=== PATIENT | female | born 1995 | race Caucasian/White ===

== ENCOUNTER 2022-01-25 23:40 | Outpatient (CLI) | payer BC, OTHER, SELFPAY ==
[2022-01-26 00:37] VITALS: BP 135/89; PULSE 82
--- NOTE | 2022-01-26 05:29 | PM.OBTRLD ---
OB - Triage/Final Diagnosis Visit Information Date of evaluation: 01/25/22 Reason for evaluation: threatened labor Comments/Additional reasons for admission: I have assessed the risk for this patient, Merylbrandie Vargas, and determined that she would benefit from observation care. Evaluation Vital signs: Vital Signs - 24 hr 01/26/22 00:37 Pulse Rate 82 Blood Pressure 135/89
== END 2022-01-26 00:30 | disposition home or self-care (01) ==
LOC: ANHOBOP 01-26 00:26 → ANHLDR 01-26 00:29
PROVIDERS: PCP Family Medicine; Visit Provider Obstetrics & Gynecology
DX: O41.8X90 Other specified disorders of amniotic fluid and membranes, unspecified trimester, not applicable or unspecified (principal)
CPT/HCPCS: 59025; 84112; 99199

== ENCOUNTER 2022-01-27 11:30 | Outpatient (RCR) | payer BC, OTHER, SELFPAY ==
[2021-12-29 13:16] VITALS: BP 112/95; PULSE 98
[2021-12-29 13:31] VITALS: BP 111/68; PULSE 95
[2021-12-29 13:46] VITALS: BP 113/67; PULSE 89
[2021-12-29 14:01] VITALS: BP 110/67; PULSE 78
[2021-12-29 14:16] VITALS: BP 109/66; PULSE 82
[2021-12-29 15:00] VITALS: BP 109/66; PULSE 82
[2022-01-05 15:30] VITALS: BP 127/74; PULSE 85
[2022-01-13 12:14] VITALS: BP 123/70; PULSE 79
[2022-01-20 12:35] VITALS: BP 126/83
== END 2022-03-25 07:35 | disposition home or self-care (01) ==
LOC: ANHOBOP 11:30
PROVIDERS: PCP Family Medicine; Visit Provider Obstetrics & Gynecology
DX: O30.003 Twin pregnancy, unspecified number of placenta and unspecified number of amniotic sacs, third trimester (principal); Z3A.33 33 weeks gestation of pregnancy; Z3A.35 35 weeks gestation of pregnancy
CPT/HCPCS: 59025

== ENCOUNTER 2022-02-02 06:29 | Inpatient (IN) | payer BC, OTHER, SELFPAY ==
[2022-02-02] VITALS (90 sets, daily range): BP systolic 94–143; BP diastolic 49–126; PULSE 67–190; RESP 18; TEMP 36.6–36.9; O2SAT 95–100; BMI 34.8
--- NOTE | 2022-02-02 06:56 | LDADM ---
This patient, Meryl Vargas, was admitted to Labor/Delivery/Recovery 102 on 02/02/22 at 06:29. Plans for labor, pain management and were discussed with patient. Patient/family oriented to hospital policies and general routines including ID bracelet, bed and alarms, visiting hours, pain management, procedures, bathroom and other care routines, personal items, smoking policy, room service/diet and guest tray routines, security routines, and visiting hours. Patient/Family are encouraged to report perceived risks to care and to ask questions if they do not understand what they are told or what they should do. See OBIX for further documentation.
[2022-02-02] MEDS: OXYTOCIN 30 UNITS/NS 500 ML 30 UNITS/500 ML BAG IV CONT (07:24)
[2022-02-02] MEDS: LACTATED RINGERS 1,000 ML 125 ML IV CONT ×3 (07:27→15:35)
[2022-02-02] MEDS: AMPICILLIN 2 GM/NS 100 ML 2 GM/100 ML BAG IVPB (07:29)
[2022-02-02 07:55] LABS: Basophils Percent Auto 0.5 % (0.2-1.2); Eosinophils Absolute Auto 0.2 K/mm3 (0-0.3); Hematocrit 31.1 % (37.0-47.0); Hemoglobin 9.2 g/dL (12.0-15.0); Immature Granulocyte Absolute 0.07 K/mm3 (0.00-0.031); Immature Granulocyte Percent A 0.9 % (0-0.5); Immature Platelet Fraction Pct 18.9 % (0.9-11.2); Lymphocytes Absolute Auto 1.46 K/mm3 (0.9-3.2); Lymphocytes Percent Auto 19.3 % (18.3-44.2); Mean Corpuscular HGB Conc 29.6 g/dl (32-36); Mean Corpuscular Hemoglobin 21.2 pg (26-34); Mean Corpuscular Volume 71.7 fl (80-100); Monocytes Absolute Auto 0.6 K/mm3 (0.1-0.6); Monocytes Percent Auto 7.5 % (2.6-8.5); Neutrophils Absolute Auto 5.3 K/mm3 (1.3-6.7); Neutrophils Percent Auto 69.8 % (45.5-73.1); Platelet Count Result 165 k/mm3 (150-375); Red Blood Count 4.34 M/mm3 (4.2-5.4); Red Cell Distribution Width 20.5 % (11.5-14.5); White Blood Count 7.6 K/mm3 (4.5-10.0)
[2022-02-02 08:20] LABS: Anisocytosis 1+ (NORMAL); Platelet Estimate Adequate (Adequate); Poikilocytosis 1+ (NORMAL); Schistocytes 1+ (NORMAL); Tear Drop Cells 1+ (NORMAL)
--- NOTE | 2022-02-02 08:35 | WPDANESEPP ---
Anes - Eval Pre Procedure Procedure: Labor Epidural Date/Time: 02/02/22 08:35 Surgeon: Herbert Preop Diagnosis: Labor Pain Pre Op Diagnosis: induction Patient Data Age: 26 Gender: F Height: 1.65 m Weight: 95 kg Last Vital Signs Pulse 84 02/02/22 08:30 BP 135/72 02/02/22 08:30 O2 Del Method Room Air 02/02/22 06:53 Allergies Allergy/AdvReac Type Severity Reaction Status Date / Time No Known Allergies Allergy Verified 01/15/22 12:24 Home Medications Medication Instructions Recorded Confirmed Type ferrous sulfate 142 mg (45 mg 142 mg PO DAILY 01/15/22 01/15/22 History iron) tablet,extended release prenat.vits,bassam,[id number] 1 tablet PO DAILY 01/15/22 01/15/22 History Laboratory Tests 02/02/22 02/02/22 07:36 07:36 WBC 7.6 K/mm3 K/mm3 (4.5-10.0) RBC 4.34 M/mm3 M/mm3 (4.2-5.4) Hgb 9.2 g/dL L g/dL (12.0-15.0) Hct 31.1 % L % (37.0-47.0) MCV 71.7 fl L fl (80-100) MCH 21.2 pg L pg (26-34) MCHC 29.6 g/dl L g/dl (32-36) RDW 20.5 % H % (11.5-14.5) Plt Count 165 k/mm3 k/mm3 (150-375) MPV TNP Immature Gran % (Auto) 0.9 % H % (0-0.5) Neut % (Auto) 69.8 % % (45.5-73.1) Lymph % (Auto) 19.3 % % (18.3-44.2) [place] % (Auto) 7.5 % % (2.6-8.5) Eos % (Auto) 2.0 % % (0-4.4) Baso % (Auto) 0.5 % % (0.2-1.2) Lymph # (Auto) 1.46 K/mm3 K/mm3 (0.9-3.2) [place] # (Auto) 0.6 K/mm3 K/mm3 (0.1-0.6) Eos # (Auto) 0.2 K/mm3 K/mm3 (0-0.3) Baso # (Auto) 0.0 K/mm3 K/mm3 (0.0-0.1) Abs Immat Gran (auto) 0.07 K/mm3 H K/mm3 (0.00-0.031) Absolute Neuts (auto) 5.3 K/mm3 K/mm3 (1.3-6.7) Absolute Nucleated RBC 0.0 K/mm3 K/mm3 (0.0-0.012) Nucleated RBC % 0.0 % % (0.0-0.2) Platelet Estimate Adequate (Adequate) % Immature Plt Fraction 18.9 % H % (0.9-11.2) Poikilocytosis 1+ (NORMAL) Anisocytosis 1+ (NORMAL) Tear Drop Cells 1+ (NORMAL) Schistocytes 1+ (NORMAL) RPR Pending Patient hx anesthesia problems: none Family hx anesthesia problems: none Results Review: All pre-operative results and documents have been reviewed as part of the pre-operative evaluation. [facility] Family History Family History (Updated 01/15/22 @ 12:26 by Ortega Quinn RN) Other No pertinent family history Social History Social History Smoking status: Former smoker Tobacco type: cigarettes Second hand tobacco smoke exposure: No Substance use: never Spiritual care concerns: No Exam Day of Procedure 02/02/22 08:35 Patient weight: obese Heart: regular rate and rhythm Lungs: clear to auscultation Airway: Mallampati scale class II Neurological: alert and oriented
--- NOTE | 2022-02-02 08:45 | PM.IMHP ---
H&P: HPI History of Present Illness Date/Time: 02/02/22 08:45 Chief Complaint: Here for induction of labor. Narrative: 26 y/o at 38 1/7 weeks with di/di twins here for induction of labor. GBS pos. Also, she is interested in permanent contraception with tubal ligation. Review of Systems Review of Systems: All systems reviewed & are unremarkable except as noted in HPI and below PMFSH Past Medical History Medical History ADHD OCD (obsessive compulsive disorder) Family History Family History Other No pertinent family history Social History Social History Smoking status: Former smoker Tobacco type: cigarettes Second hand tobacco smoke exposure: No Substance use: never Spiritual care concerns: No Meds Home Medications and Allergies Home Medications Medication Instructions Recorded Confirmed Type ferrous sulfate 142 mg (45 mg 142 mg PO DAILY 01/15/22 01/15/22 History iron) tablet,extended release prenat.vits,bassam,ton-[id number] 1 tablet PO DAILY 01/15/22 01/15/22 History Allergies Allergy/AdvReac Type Severity Reaction Status Date / Time No Known Allergies Allergy Verified 01/15/22 12:24 Vital Signs Vital Signs - 24 hr 02/02/22 06:53 02/02/22 07:09 02/02/22 07:15 Pulse Rate 88 80 Blood Pressure 134/91 H 130/84 Oxygen Delivery Room Air 02/02/22 07:45 02/02/22 08:00 02/02/22 08:15 Pulse Rate 85 90 82 Blood Pressure 134/76 143/88 H 133/82 Oxygen Delivery 02/02/22 08:30 Pulse Rate 84 Blood Pressure 135/72 Oxygen Delivery Exam Const: Orientation/consciousness: patient oriented x3 Other: Well-developed, well-nourished female in no acute distress. Neck: Thyroid: thyroid normal Lymphatic: no lymphadenopathy noted (in neck, axilla or inguinal nodes) Resp: Effort & Inspection: normal respiratory effort Auscultation: clear to auscultation bilaterally Cardio: Rate: regular rate Rhythm: regular rhythm Heart sounds: S1 normal heart sound present and S2 normal heart sound present GI: Other: ABD: Soft, nontender, nondistended, gravid. NST reactive x 2. TOCO: irregular contractions. Bedside ultrasound exam by me shows vtx / vtx, with baby A on maternal left. : General: Yes no CVA tenderness Other: Cervix 4/50/-2. AROM with thin meconium. Vertex presentation. Back/Spine/Pelvis: Back: no CVA tenderness Skin: General skin exam: normal color and no rashes or lesions noted Neuro: General: patient oriented x3 Extrem: Other: Extremities: nontender with no edema Psych: Mental Status: mental status grossly normal Affect: normal affect H&P: Results Labs Labs: Short CBC 02/02/22 Range/Units 07:36 WBC 7.6 (4.5-10.0) K/mm3 Hgb 9.2 L (12.0-15.0) g/dL Hct 31.1 L (37.0-47.0) % Plt Count 165 (150-375) k/mm3 Assessment and Plan Assessment and plan (1) Twin gestation with second : Code(s): O30.009 - Twin , unspecified number of placenta and unspecified number of amniotic sacs, unspecified trimester Status: Acute Assessment and Plan: A: IUP at 38 1/7 weeks with di/di twins, vtx / vtx, desiring induction of labor. GBS pos. Would like tubal ligation for permanent contraception as well. P: Offered induction of labor. Reviewed risks / benefits / alternatives in detail. Ampicillin for GBS. Peds aware of thin meconium. Also, she understands there are temporary methods of contraception available to her. She understands that there are nonsurgical options as well as surgical options. She understands that tubal ligation will render her permanently sterile. She understands that there is a failure rate associated with tubal ligation, as well as an inherent ectopic gestation risk. Furthermore, she und
[2022-02-02 10:30] LABS: Rapid Plasma Reagin Non-Reactive (NonReactive)
[2022-02-02] MEDS: AMPICILLIN 1 GM/NS 50 ML 1 GM/50 ML BAG IVPB ×2 (11:36→15:15)
--- NOTE | 2022-02-02 11:43 | PM.OBPNLAB ---
Pain Control Date/time seen: 02/02/22 11:43 Feeling cointracions. AVSS NST reactive x 2. TOCO: contractions every 2-5 min Cervix 5/50/-2. IUPC placed. Continue labor.
--- NOTE | 2022-02-02 15:30 | PC.NURSE ---
1500 - 1513 Introductions were made in room 102 related to mother asking for assistance with twins and she is interested in reviewing some education prior to delivery. Mother led the conversation with her?plans to feed?her infants. Mother plans to place her infants skin to skin for at least one hour with no bathing. Encouraged her plan and how to encourage infants to latch and remove milk. Educated mother on hand expressing if there's is separation or no latching within the first hour after to encourage a robust milk supply for twins. tool used for teach back on the technique of hand expression. Primary RN is in the room to assess the patient.
--- NOTE | 2022-02-02 16:48 | PM.OBPRVD ---
OB - Delivery Note Procedure Delivery date: 02/02/22 Procedure: Induction of labor with of twins Induction method: Per Pitocin Protocol Delivery augmentation: Rupture of Membranes Delivery monitor: External FHT, External Uterine and Internal Uterine Route of delivery: Laceration Description: Periurethral and Vaginal Delivery repair: vicryl (3-0) Specimen: Yes (cord blood x 2, placentas x 2) Quantitative Blood Loss (ml): 420 Anesthesia type: Epidural Disposition: PACU Complications: None Narrative: 26 y/o at 38 1/7 weeks gestation with di/di twins who presented to the hospital for induction of labor. GBS pos. She received ampicillin. Oxytocin was administered intravenously. Amniotomy of sac A was performed with return of thinly meconium-stained fluid. She received an epidural for pain control. Her labor progressed and her cervix dilated completely. She was taken to the OR, where she pushed with good effort and delivered the 's head to the perineum, followed by the body. The nose and mouth were bulb suctioned. After a delay, the cord was clamped and cut. The was handed off the field. Transabdominal ultrasound performed by me confirmed cephalic presentation. Amniotomy of sac B yielded return of clear fluid. The hand was then presenting. This was able to be reduced easily, and cephalic presentation once again ensued. She pushed with good effort and delivered the 's head to the perineum. A nuchal cord x 2 was splinted and the body delivered. The cord was reduced and the nose and mouth bulb suctioned. After a delay, the cord was clamped and cut. The infant was handed off the field. Cord blood was collected. Cord A was tagged with a plastic clamp. The placenta delivered spontaneously and was grossly normal in appearance. The usual 3 vessel cord was noted x 2. A left periurethral laceration was reapproximated with two figure of eight sutures of 3-0 Vicryl. A right labial laceration was reapproximated with a single figure of eight suture of the same material. Excellent hemostasis resulted as did excellent reapproximation of the normal anatomy. Needle and instrument counts were correct. The patient was taken to recovery room in stable condition. The went to the nursery in stable condition. I was present and scrubbed for the entire delivery. Baby Weeks of gestation at delivery: 38 Twins 1: Date of : 02/02/22 Time of : 16:12 Weeks of gestation at delivery: 38 gender: Female Weight (pounds): 6 Weight (ounces): 10 presentation: vertex position: Left Occiput Anterior Placental delivery description: Spontaneous and Normal Configuration Cord Vessel Description: 3 Vessels and Delayed Cord Clamping score one minute: 9 score five minutes: 9 2: Date of : 02/02/22 Time of : 16:20 Weeks of gestation at delivery: 38 gender: Female Weight (pounds): 5 Weight (ounces): 10 presentation: vertex position: Left Occiput Anterior Placental delivery description: Spontaneous and Normal Configuration Cord Vessel Description: 3 Vessels, Nuchal Cord (x2) and Delayed Cord Clamping score one minute: 8 score five minutes: 9
[2022-02-02] MEDS: OXYTOCIN 30 UNITS/NS 500 ML 30 UNITS/500 ML BAG 125 UNITS IV CONT (16:50)
--- NOTE | 2022-02-02 17:08 | PM.OBDSVD ---
DS: Admitting Diagnosis Discharge Date 02/04/22 Admitting Diagnosis IUP at 38 1/7 weeks Di/di twin gestation GBS pos Desired sterility DS: Discharge Diagnosis Discharge Diagnosis (1) Unwanted fertility: Code(s): Z30.09 - Encounter for other general counseling and advice on contraception Status: Acute (2) GBS (group B Streptococcus carrier), +RV culture, currently : Code(s): O99.820 - Streptococcus B carrier state complicating Status: Acute (3) Twin gestation with second : Code(s): O30.009 - Twin , unspecified number of placenta and unspecified number of amniotic sacs, unspecified trimester Status: Acute (4) Twin : Code(s): Z37.9 - Outcome of delivery, unspecified Status: Acute OB - DS: Summary OB Procedures : NST and Ultrasound OB Procedures Intrapartum: Spontaneous Vag Delivery (twins) OB Procedures: : P.P. tubal ligation Time Spent with Patient Time attestation: Total time spent providing and/or coordinating discharge services: DS: Data Data Completed and Pending Labs on day of discharge: Labs from last 24 hours 02/02/22 02/02/22 02/02/22 07:36 07:36 07:36 WBC 7.6 RBC 4.34 Hgb 9.2 L Hct 31.1 L MCV 71.7 L MCH 21.2 L MCHC 29.6 L RDW 20.5 H Plt Count 165 MPV TNP Immature Gran % (Auto) 0.9 H Neut % (Auto) 69.8 Lymph % (Auto) 19.3 [place] % (Auto) 7.5 Eos % (Auto) 2.0 Baso % (Auto) 0.5 Lymph # (Auto) 1.46 [place] # (Auto) 0.6 Eos # (Auto) 0.2 Baso # (Auto) 0.0 Abs Immat Gran (auto) 0.07 H Absolute Neuts (auto) 5.3 Absolute Nucleated RBC 0.0 Nucleated RBC % 0.0 Platelet Estimate Adequate % Immature Plt Fraction 18.9 H Poikilocytosis 1+ Anisocytosis 1+ Tear Drop Cells 1+ Schistocytes 1+ RPR Non-reactive Blood Type A Positive Antibody Screen Negative Discharge Plan Discharge Attending physician on discharge: Reilly Godinez Discharging Clinician: Reilly Godinez Patient Disposition: Home, Self-Care Activity: pelvic rest Diet: regular Wound Care Instructions: incision open to air Discharge Instructions: Education: Mom and Baby Guide Given to: Mother Follow-Up: Call your delivering provider's office for an appointment to be seen in: 6 Weeks Mom and baby [facility] for the follow-up appointment. Appointment Date/Time: February 05, 2022 at 8:00 am What to expect at your follow-up visit: Blood Pressure Check Physical Assessment Call [phone] if you are unable to keep your appointment time. BREAST CARE: * Wear a snug supportive bra. * For engorgement discomfort: Breast Feeding: * Apply warm moist washcloths * Express milk as needed to relieve engorgement * Wear loose clothing Bottle Feeding: * May apply ice packs * For sore nipples: * Identify correct latch-on * Apply warm moist washcloths before and after nursing * Air dry nipples after nursing * May apply Lansin[place] cream to nipples EPISIOTOMY/PERINEAL CARE: * Until bleeding stops, use your max bottle after urinating * Change your pad frequently throughout the day * You may take sitz baths several times a day (fill your bathtub with warm water and soak for 20 minutes.) Do NOT bathe in the water * No tub baths until seen by your physician - You may shower ACTIVITY: * Rest as much as possible. * Do not exercise or lift anything heavier than your baby (such as laundry or other children.) * Avoid stairs or driving as much as possible. * Do not put anything into the vagina. No douching, tampons, or sexual activity until seen by physician. NOTIFY PHYSICIAN IF YOU HAVE ANY QUESTIONS OR IF ANY OF THE FOLLOWING SYMPTOMS OCCUR: * If your episiotomy or incision becomes red, swollen, or more painful than what y
[2022-02-02] MEDS: METHYLERGONOVINE MALEATE 0.2 MG/ML VIAL IM (17:38)
[2022-02-02] MEDS: WITCH HAZEL 40 PADS 1 PAD TOPICAL (19:35)
[2022-02-02] MEDS: BENZOCAINE 20% AER SPR (*SP) 56 GM CAN 1 SPRAY TOPICAL (19:35)
--- NOTE | 2022-02-02 19:48 | OBPPTRN ---
Patient transferred to post room #277 via W/C. Support person present. Oriented to unit, room, information board, rooming in, admission packet and security measures. Patient verbalizes understanding.
[2022-02-02] MEDS: ONDANSETRON INJ 4 MG/2 ML VIAL IV PUSH (19:56)
[2022-02-02] MEDS: POLYSACCHARIDE IRON COMPLEX 150 MG CAPSULE PO (20:30)
[2022-02-02] MEDS: IBUPROFEN 600 MG TABLET PO (21:20)
[2022-02-03] VITALS (9 sets, daily range): BP systolic 118–139; BP diastolic 77–94; PULSE 76–98; RESP 14–18; TEMP 36.1–37.1; O2SAT 96–100
[2022-02-03 05:19] LABS: Hematocrit 30.2 % (37.0-47.0); Hemoglobin 9.1 g/dL (12.0-15.0)
--- NOTE | 2022-02-03 08:01 | WPDANLDPN2 ---
Anes-Prog Note L&D Date/Time: 02/03/22 08:01 Neuro status: Neuro function grossly intact. Vital Signs: Last Vital Signs Temp 36.5 C 02/03/22 04:30 Pulse 81 02/03/22 04:30 Resp 18 02/03/22 04:30 BP 126/81 02/03/22 04:30 Pulse Ox 100 02/02/22 15:48 O2 Del Method Room Air 02/02/22 20:00 Pain score (VAS): 0 I/O: Intake & Output 02/02/22 02/03/22 02/03/22 23:59 07:59 15:59 Intake Total 1000 Output Total 705 Balance 295 Patient feedback: Patient satisfied with anesthetic care.
--- NOTE | 2022-02-03 08:50 | PC.NURSE ---
[id number] Consulted with patient to assess needs related to . Mother led conversation with her experience with feeding babies so far. Mother plans to place infants skin to skin and voiced she would call for assistance since her nipples are tender. Reviewed signs of adequate intake/output using the pie demonstration. [id number] Mother works well with her infants with encouragement. Mother initiates without skin to skin first. Reviewed the benefits of skin to skin, responding to feeding cues, frequencies of feeding 8-12 times in 24 hours (approximately 2-3 hours), duration of feedings, milk production, intake/output feeding sheet and signs of adequate intake encouraging swallowing at the breast. Reviewed positioning and alignment, supporting breast, off-centered (asymmetrical latch) and leading with the chin with big, open, wide gape. Infant Riri latched to the left breast using football positioning. Father of infant stimulated infant when needed to actively and effectively breastfeed. She breastfed for 8-10 minutes with no pain to mother and nipple was not misshaped after . Kyrie latched to the right breast in football position several times and was detached related to having a non-optimal latch. She latched optimally to the right breast using cross cradle positioning with no pain or misshaping to the nipple. Education given to mother of how to visualize suck/swallow ratios, listening for drinking at the breast, and RN did not visualize swallowing. Infant did demonstrate rocking motion and piston motion while practicing . Infant was able to maintain latch without discomfort to mother. Nipple care reviewed with optimal latch and good positioning. Both infant had stool diapers and were changed. Mother voiced understanding of the education shared, calling for assistance if the infant does not wake to breastfeed or if there is discomfort with . POC is to practice together 2-3 hours from the start of this last feeding approximately 1000 according to the infants cues. Reported to the primary RN.
[2022-02-03] MEDS: MULTIVIT/MIN/PREN/FOL AC/IRON TABLET 1 TAB PO (08:57)
[2022-02-03] MEDS: POLYSACCHARIDE IRON COMPLEX 150 MG CAPSULE PO ×2 (08:57→19:35)
--- NOTE | 2022-02-03 09:01 | PM.OBPNVD ---
OB - PN: Subj Subjective Date/time seen: 02/03/22 09:01 Narrative: Pain OK. Still would like tubal ligation. OB - PN: Obj Data Labs CBC & Chem 7: 02/03/22 04:39 Labs: Laboratory Results - last 24 hr 02/02/22 02/03/22 07:36 04:39 Hgb 9.1 L Hct 30.2 L RPR Non-reactive OB - PN A/P Plan Comments: A: PPD#1, doing well. P: Plan tubal ligation. Otherwise, routine care. Exam Psych: Other: AVSS ABD soft, nontender, fundus firm EXT nontender
--- NOTE | 2022-02-03 11:25 | PC.NURSE ---
Pt taken to OR for surgery at 02/03/2022 11:25.
--- NOTE | 2022-02-03 11:36 | WPDANESEPPF ---
Anes - Initial Pre Proc Eval Procedure: Operation Date: 02/03/22 12:30 Proposed Procedures p Post- Tubal Ligation - Reilly Godinez MD Date/Time: 02/03/22 11:36 Surgeon: Reilly Godinez MD Pre Op Diagnosis: induction Patient Data Age: 26 Gender: F Height: 1.65 m Weight: 95 kg Last Vital Signs Temp 36.5 C 02/03/22 07:35 Pulse 78 02/03/22 07:35 Resp 16 02/03/22 07:35 BP 118/77 02/03/22 07:35 Pulse Ox 98 02/03/22 07:35 O2 Del Method Room Air 02/02/22 20:00 Allergies Allergy/AdvReac Type Severity Reaction Status Date / Time No Known Allergies Allergy Verified 01/15/22 12:24 Home Medications Medication Instructions Recorded Confirmed Type ferrous sulfate 142 mg (45 mg 142 mg PO DAILY 01/15/22 01/15/22 History iron) tablet,extended release prenat.vits,bassam,qea-[id number] 1 tablet PO DAILY 01/15/22 01/15/22 History Laboratory Tests 02/03/22 04:39 Hgb 9.1 g/dL L g/dL (12.0-15.0) Hct 30.2 % L % (37.0-47.0) Patient hx anesthesia problems: none Family hx anesthesia problems: none Results Review: All pre-operative results and documents have been reviewed as part of the pre-operative evaluation. [facility] Past Medical History Medical History ADHD OCD (obsessive compulsive disorder) Family History Family History Other No pertinent family history Social History Social History Smoking status: Former smoker Tobacco type: cigarettes Second hand tobacco smoke exposure: No Substance use: never Spiritual care concerns: No Anes - Eval Final PreProcedure Day of Procedure 02/03/22 11:36 Patient weight: obese Heart: regular rate and rhythm Lungs: clear to auscultation Airway: Mallampati scale class II Neurological: alert and oriented Last oral intake: >/= 8 hours ASA classification: II Emergent: no Anesthetic plan: proceed Anesthesia type and monitoring: regional epidural (will attempt using existing labor epidural and GA with ETT as secondary option) and standard monitoring Results Review: All pre-operative results and documents have been reviewed as part of the pre-operative evaluation. Informed Consent: The patient's anesthetic plan and its attendant risks and benefits were discussed with the patient/family/POA. Questions were solicited and answers provided to the satisfaction of the patient/family/POA.
[2022-02-03] MEDS: LACTATED RINGERS 1,000 ML 30 ML IV CONT (11:40)
--- NOTE | 2022-02-03 12:12 | PC.NURSE ---
[id number] Consulted with patient to assess needs related to . Mother led conversation with her experience with feeding babies so far. Mother works well with her infants and has Riri latched to the right breast using football positioning. Father of the babies is assisting with latching Amayah to the left breast. Mother voiced understanding to protect the nipples with an optimal deep latch, good positioning, and good hand washing. Reviewed positioning and alignment, supporting breast, off-centered (asymmetrical latch) and leading with the chin with big, open, wide gape. Infant latched optimally to the left breast in football position after a few attempts. Education given to mother of how to visualize suck/swallow ratios and listen for drinking at the breast. was able to maintain latch without discomfort to mother. Nipple care reviewed with optimal latch and good positioning, and to have clean hands when touching the nipple/breast. Intake and output was discussed using the pie demonstration and parents voiced understanding of signs of good intake for the infants. Resources used to facilitate learning were used from the tool and mom/baby guide. Mother voiced understanding of the education shared, calling for assistance if the infant does not wake to latch or if there is discomfort with . Reported to the primary RN.
[2022-02-03] MEDS: LIDOCAINE HCL 1% PF 30 ML VIAL INFILTRATE (12:45)
--- NOTE | 2022-02-03 12:59 | W.PM.PROC2 ---
Procedure Note - Detailed Date of Procedure 02/03/22 Pre-op Diagnosis Desired sterility Post-op Diagnosis Same Procedure Performed bilateral tubal ligation via modified [place] technique Surgeon Reilly Godinez MD Anesthesia Local (1% lidocaine) and Epidural Findings Normal Fallopian tubes bilaterally Description of Procedure The patient was taken to the operating room where she was prepared and draped in the usual sterile fashion in dorsal supine position. Epidural anesthesia was found to be adequate. Five mL of 1% lidocaine administered to the planned incision site. An infraumbilical skin incision was made and carried through to the underlying fascia. The fascia was incised in the midline and the incision extended laterally. The right Fallopian tube was grasped with a [place] clamp and followed out the fimbriated end for identification. It was regrasped in the midportion. A loop of tube was ligated with a tie of 0 plain gut. The tubal segment was sharply excised and passed off to be sent to pathology. Hemostasis was excellent. The left tube was similarly identified and ligated. Again, hemostasis was excellent. The fascial layer was reapproximated using a running suture of 0 Vicryl. The skin was closed with a running subcuticular stitch of 4-0 Monocryl. Dermabond was applied externally. Hemostasis was excellent. Sponge, lap, needle and instrument counts were correct. The patient was taken to the recovery room in stable condition. I was present and scrubbed the entire procedure. Implants None Estimated Blood Loss 5 Drains No Packing No Pathology Yes (Segments of bilateral Fallopian tubes) Complications None Condition Stable Disposition PACU
[2022-02-03] MEDS: IBUPROFEN 600 MG TABLET PO (16:26)
--- NOTE | 2022-02-03 17:27 | PC.NURSE ---
Pt. declined iron and stool softener at this time.
[2022-02-03] MEDS: DOCUSATE SODIUM 100 MG CAPSULE PO (19:35)
--- NOTE | 2022-02-04 06:53 | PM.OBPNVD ---
OB - PN: Subj Subjective Date/time seen: 02/04/22 06:53 OB - PN: Obj Data Labs CBC & Chem 7: 02/03/22 04:39 OB - PN A/P Time Spent With Patient Time: Total time spent is greater than 50% in coordination of care (as documented) at patient's floor/unit and/or counseling patient:
--- NOTE | 2022-02-04 06:53 | PM.OBPNVD ---
OB - PN: Subj Subjective Date/time seen: 02/04/22 06:53 Patient comments: no complaints and pain well controlled baby status: doing well OB - PN: Obj Data Labs CBC & Chem 7: 02/03/22 04:39 OB - PN A/P Plan day: 2 Plan: routine care, discharge home and follow up 6 weeks ( 4 weeks) Time Spent With Patient Time: Total time spent is greater than 50% in coordination of care (as documented) at patient's floor/unit and/or counseling patient: Time with patient: less than 15 minutes Exam Const: General: cooperative, healthy appearing and comfortable Nutritional Appearance: average body habitus GI: Inspection: incision ( Wound clean dry and intact)
[2022-02-04 07:30] VITALS: BP 132/86; PULSE 71; RESP 18; TEMP 36.8; O2SAT 100
[2022-02-04] MEDS: IBUPROFEN 600 MG TABLET PO (07:30)
[2022-02-04] MEDS: DOCUSATE SODIUM 100 MG CAPSULE PO (08:20)
[2022-02-04] MEDS: MULTIVIT/MIN/PREN/FOL AC/IRON TABLET 1 TAB PO (08:20)
[2022-02-04] MEDS: POLYSACCHARIDE IRON COMPLEX 150 MG CAPSULE PO (08:20)
[2022-02-04] MEDS: TETANUS,DIPHTHERIA,AC PERTUSSIS ADULT (0.5 ML) BOOSTRIX IM (13:26)
--- NOTE | 2022-02-04 13:46 | PC.NURSE ---
[id number] Mother led the conversation with her experience and plan to feed her infants so far. Mother has been attempting to breastfeed through the night and her nipples are sore and bruised today. Reminded parents to use good handwashing technique to prevent infection. Mother is feeding appropriately for growth of infants, understands stimulating to eat, pumping and possibly supplementing if needed. Infants have had appropriate feedings in the last 24 hours meets the outcomes for weight, output and jaundice at this time. Discussed the results of weight loss, jaundice, intake, output, and mother wants to pump to heal her breast from latching her infants. attempt was made with Kyrie and infant doesn't latch effectively and is discontent after feeding. Mother states she is confident to continue practice working on optimal latching, but will pump and feed for awhile to allow her nipples to heal, then she will begin supplementing with formula until her milk comes to volume. Parents voice knowing when to call for assistance and denies any additional assistance or education at this time. Reinforced understanding of milk production, transition of milk, signs of adequate intake, prevention/relief of engorgement, responsive after visualizing feeding cues, the different methods of stimulating to breastfeed 2-3 hours after the start of the last feeding, community resources, medication information reviewed per [facility] and when to call a provider using the resource of the mom and baby guide/[facility] website. Mother voiced understanding of the education shared. Reported to the primary RN.
[2022-02-05 09:02] VITALS: BP 134/70; PULSE 98; RESP 20; TEMP 36.9; O2SAT 100
== END 2022-02-04 13:52 | disposition home or self-care (01) | DRG 798 ==
LOC: ANHLDR 17:11 → ANHOB2 20:01
PROVIDERS: Admitting Provider Obstetrics & Gynecology; PCP Family Medicine; Visit Provider Obstetrics & Gynecology
PROC: 0UB70ZZ Excision of Bilateral Fallopian Tubes, Open Approach (ICD-10-PCS; CPT 58605; principal; 2022-02-03 12:30)
DX: O99.824 Streptococcus B carrier state complicating childbirth (principal); Z37.2 Twins, both liveborn; Z30.2 Encounter for sterilization; O77.0 Labor and delivery complicated by meconium in amniotic fluid; O69.81X2 Labor and delivery complicated by cord around neck, without compression, fetus 2; O71.82 Other specified trauma to perineum and vulva; O70.0 First degree perineal laceration during delivery; O76 Abnormality in fetal heart rate and rhythm complicating labor and delivery; O30.043 Twin pregnancy, dichorionic/diamniotic, third trimester; Z3A.38 38 weeks gestation of pregnancy; Z87.891 Personal history of nicotine dependence
CPT/HCPCS: 36415; 85014; 85018; 85025; 85055; 86592; 86850; 86900; 86901; 88302; 88307; 90715; A9270; J0290; J2210; J2250; J2405; J2590; J2795; J3010; J7120

== ENCOUNTER 2022-06-01 09:54 | Outpatient (CLI) | payer BC, SELFPAY ==
--- NOTE | 2022-06-01 15:06 | PC.NURSE ---
In- [id number] Out- [id number] Reason for visit: Mother desires to learn and teach her 4 month twin girls to breastfeed that have been bottle feeding with breast milk. History: L3 mother delivered twin girls at 38 EGA vaginally on 02/02/2022. She has a history of not her first child related to pain. Mother takes Zoloft and PNV. Mother has depression and denies any difficulties coping with the help of medication and exercise. Additional medical history: [place], asthma, carpel tunnel with , anemia, eczema, ADHD and mentioned above depression. 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 History: Baby La Menezes and Baby Steffanie Mittal appear healthy and well nourished. Observations: Mother works well with her infants. She places them skin to skin and achieves latching Amayah with no misshaped nipple or pain. Kyrie practices and swallows intermittently. After a few minutes she becomes restless and cries. Mother comforts and decides to practice techniques with Riri. At first, Riri refuses the breast. Reviewed the risks and benefits of using a nipple shield, how to clean and properly apply the shield. After using a nipple shield Riri latches and sucks but is unable to transfer milk at this time. Education was reviewed on removing the nipple shield and attempting to latch without the nipple shield. Riri cries and will not latch without the nipple shield. After working with infants on/off for 30 minutes they become discontent and mother praises them for their efforts and decides to bottle feed. RN reviewed the benefits of pace bottle feeding infants while she is practicing putting the infants back to the breast. weight: Baby A 3010g (6lbs 10 oz) Baby B 2550g (5lbs 10oz) Lowest weight: Baby A 2760g Baby B 2448g Last weight: unknown Pre-feed weight: baby A 6010g (13lbs.4oz) Baby B 5793 ( 12lbs-12.3oz) Post-feed weight: There was not a post weight feeding after being bottle fed. Plan of Care: Mother plans to practice the new positions, techniques when she and the infants are in a good relaxed state of mind to learn a new way of eating. Follow up plans: Mother is encouraged and voiced understanding that she can call for questions, concerns or assistance.
== END 2022-06-01 09:55 | disposition home or self-care (01) ==
LOC: ANHOBOP 09:59
PROVIDERS: PCP Family Medicine; Visit Provider Obstetrics & Gynecology
DX: Z39.1 Encounter for care and examination of lactating mother (principal)
CPT/HCPCS: 99215; G0463